=== PATIENT | male | born 1950 | race Hispanic/Latino ===

== ENCOUNTER 2016-08-12 19:16 | Emergency (ER) | payer MEDICARE ==
--- NOTE | 2016-08-12 19:56 | ED PDOC ---
Arrival/HPI - General Historian: Police - General Chief Complaint: Altered Mental Status Time Seen by Provider: 08/12/16 19:20 - History of Present Illness Narrative History of Present Illness (Text): 08/12/16 19:51 Mr. Dillon is a 66 year old male with pmh significant for dementia who was brought in by police after found wondering streets by police and brought to the emergency department for apparent altered mental status. He is unable to recall his name or date of . Police indicated that when fist encountering the patient he had limited response to questioning and evidence of loss of bowels. He had a finger stick glucose of 100 in the field before being brought to [facility]. During the interview the patient was awake and alert with limited response. (GEORGIA REBOLLEDO) Past Medical History - Provider Review Nursing Documentation Reviewed: Yes - Past History Past History: Unable to Obtain (secondary to altered mental status) - Past Medical History Past Medical History: Unable to Obtain (secondary to altered mental status) - Psychiatric Hx Substance Use: No Family/Social History Family/Social History: Unknown Family HX Smoking Status: Unknown If Ever Smoked Hx Alcohol Use: No Hx Substance Use: No Allergies/Home Meds Allergies/Adverse Reactions: Allergies Unobtainable Allergy (Verified 08/12/16 19:22) Home Medications: Home Meds Medication Instructions Recorded Confirmed Unobtainable 08/12/16 08/12/16 Review of Systems - Review of Systems Systems not reviewed;Unavailable: Altered Mental Status Physical Exam - Physical Exam Physical Exam Limitations: Altered Mental Status - Systems Exam Head: Present: Atraumatic, Normocephalic Pupils: Present: PERRL Extroacular Muscles: Present: EOMI Conjunctiva: Present: Normal Mouth: Present: Moist Mucous Membranes, Normal Lips, Normal Tounge Neck: Present: Normal Range of Motion Respiratory/Chest: Present: Clear to Auscultation, Good Air Exchange. No: Respiratory Distress, Accessory Muscle Use Cardiovascular: Present: Regular Rate and Rhythm, Normal S1, S2. No: Murmurs Abdomen: Present: Normal Bowel Sounds. No: Tenderness, Distention, Peritoneal Signs Rectal: No: Occult Blood, Gross Blood Upper Extremity: Present: Normal Inspection, NORMAL PULSES. No: Cyanosis, Edema Lower Extremity: Present: Normal Inspection, NORMAL PULSES Neurological: Present: CN II-XII Intact, Motor Func Grossly Intact, Other (GCS= 13) Skin: Present: Warm, Dry Medical Decision Making - EKG Interpretation Interpreted by ED Physician: Yes Type: 12 lead EKG ED Course and Treatment: 08/12/16 21:16 Impression: Mr. Dillon is a 66 year old male who was brought to emergency department by police after being found wandering streets with soiled clothes. Differential Diagnosis included but are not limited to: -Dementia Plan: - Neuro exam for AMS - Family contacted [facility] and plan to take home - Reassess and disposition Progress Notes: (GEORGIA REBOLLEDO) Impression: Pt seen and evaluated with medical coder. Pt, whose past medical history includes dementia, presented to Emergency department brought in for AMS. Pt was found wandering the streets and pt is unable to recall his nake or date of .Aware and agree with HPI, clinical findings, plan, and management. 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 MD/ has examined the patient and agrees with the treatment plan. Disposition/Present on Arrival - Present on Arrival Any Indicators Present on Arrival: No History of DVT/PE: No History of Uncontrolled Diabetes: No Urinary Catheter: No History of Decub. Ulcer: No History Surgical Site Infection Following: None - Disposition Have Diagnosis and Disposition been Completed?: Yes Disposition Time: 21:20 - Disposition Diagnosis: Dementia Disposition: HOME/ ROUTINE Patient Problems: Current Active Problems Problem Status Onset Dementia Acute Condition: GOOD Discharge Instructions (ExitCare): Dementia (ED) Referrals: PCP,NO [Primary Care Provider] - Follow up with primary
[2016-08-12 20:16] VITALS: RESP 16; TEMP 98.3; O2SAT 100
[2016-08-12 20:31] VITALS: BMI 26.6
[2016-08-12 21:15] VITALS: BP 169/85; PULSE 70
--- NOTE | 2016-08-13 08:54 | CARD ---
APPROVED REPORT EKG Measurement Heart [id number] <Conclusion> Normal sinus rhythm Normal ECG
== END 2016-08-12 21:39 | disposition home or self-care (01) ==
LOC: ED 19:16 → EDBD 19:16 → ED 21:39
DX: F03.90 Unspecified dementia, unspecified severity, without behavioral disturbance, psychotic disturbance, mood disturbance, and anxiety (principal)